=== PATIENT | female | born 2000 | race Caucasian/White ===

== ENCOUNTER 2020-12-18 00:19 | Emergency (ER) | payer MEDICAID, SELFPAY ==
--- NOTE | ~2020-12-18 | XR_ITS ---
EXAMINATION: XR CHEST CLINICAL INFORMATION: Mid chest pain COMPARISON: None TECHNIQUE: Frontal view of the chest was obtained. FINDINGS: The lungs are well expanded. There is no focal consolidation, edema, or effusion. No pneumothorax. The cardiomediastinal silhouette is within normal limits. No acute osseous abnormality. XR/XR chest 1V IMPRESSION: Clear lungs.
[2020-12-18 00:26] VITALS: BP 122/67; PULSE 77; RESP 16; TEMP 37.2; O2SAT 99; BMI 35.5
--- NOTE | 2020-12-18 00:53 | ED.GENADULT ---
HPI - General Adult General Chief complaint: General Medical Stated complaint: chest pain, resp pain Time Seen by Provider: 12/18/20 00:40 Source: patient Mode of arrival: ambulatory Limitations: no limitations History of Present Illness HPI narrative: . Patient with No significant past medical history with a sore throat for last 5 days burning sensation in the throat and also complaining of upper sternum pain since then increases on palpation movements of the hand. Out so patient complaining of cough is mostly dry no fever or chills Related Data Previous Rx's Medication Instructions Recorded amoxicillin 875 mg-potassium 1 tab PO BID #20 tab 12/18/20 clavulanate 125 mg tablet (Augmentin) ibuprofen 600 mg tablet 600 mg PO Q6H PRN #20 tab 12/18/20 Allergies Allergy/AdvReac Type Severity Reaction Status Date / Time sulfamethoxazole Allergy Unknown SWELLING Verified 12/18/20 00:26 [From BACTRIM] TO LIPS trimethoprim [From BACTRIM] Allergy Unknown SWELLING Verified 12/18/20 00:26 TO LIPS bactrim Allergy Unknown swollen Uncoded 12/18/20 00:26 lips Review of Systems Review of Systems: Yes all other systems are reviewed and are negative [facility] Social History Social History Advance Directives: No Advance Directives Information Provided: Yes Patient : No Physical Exam Vital Signs: Vital Signs: Last Vital Signs Temp 98.9 F 12/18/20 00:26 Pulse 77 12/18/20 00:26 Resp 16 12/18/20 00:26 BP 122/67 12/18/20 00:26 Pulse Ox 99 12/18/20 00:26 Body Mass Index 35.5 Appearance: Alert. Oriented X3. No acute distress. ENT: Slight erythema in posterior pharynx, Oral Mucosa moist Neck: Normal inspection. Neck supple. CVS: Normal heart rate and rhythm. Pulses normal. Respiratory: No respiratory distress. Equal air entry bilateral, no wheezing/rales/rhonchi ,tender to touch 2nd intercostal space bilateral Abdomen: Soft and nontender. Bowel sounds are present, Skin: Skin warm and dry. Normal skin color. Normal skin turgor. Extremities: No lower extremity edema. No calf tenderness Neuro: Oriented X 3. Course Reevaluation(s) Reevaluation #1: Chest x-ray negative for any infiltrate, rapid strep is pending. Will give Augmentin Time: 01:28 Medical Decision Making MDM Narrative Medical decision making narrative: Patient's symptoms likely from costochondritis. Will do a strep test as patient has sore throat. Patient already been vaccinated against COVID Discharge Plan Discharge Clinical Impression: Acute costochondritis Pharyngitis Qualifiers: Pharyngitis/tonsillitis etiology: other specified organisms Qualified Code(s): J02.8 - Acute pharyngitis due to other specified organisms Patient Disposition: Home, Self-Care Instructions: Pharyngitis (ED), Costochondritis (ED) Additional Instructions: Take ibuprofen every 6 hours for the pain Antibiotic as prescribed for infection Follow with PCP Prescriptions: New ibuprofen 600 mg tablet 600 mg PO Q6H PRN (Reason: pain) Qty: 20 RF: 0 amoxicillin-pot clavulanate [Augmentin] 875-125 mg tablet 1 tab PO BID Qty: 20 RF: 0
[2020-12-18 01:57] VITALS: BP 95/45; PULSE 68; RESP 15; O2SAT 97
[2020-12-18] MEDS: Amoxicillin/Potassium Clav 875 MG TABLET PO (01:58)
[2020-12-18] MEDS: Ketorolac Tromethamine 60 MG/2 ML VIAL IM (01:58)
[2020-12-18 02:19] LABS: IDNOW Serial# 9DD0AD1C; Strep A Nucleic Acid Negative (Negative)
== END 2020-12-18 02:09 | disposition home or self-care (01) ==
PROVIDERS: Emergency Provider Internal Medicine; PCP General Practice
DX: J02.8 Acute pharyngitis due to other specified organisms (principal); M94.0 Chondrocostal junction syndrome [Tietze]
CPT/HCPCS: 36415; 71045; 87651; 96372; 99284; J1885

== ENCOUNTER 2021-04-04 08:48 | Outpatient (REF) | payer MEDICAID, SELFPAY ==
[2021-04-04 09:29] LABS: Binax Internal Control QC Valid; Binax Now Covid-19 Ag Negative (Negative)
== END 2021-04-04 08:49 | disposition home or self-care (01) ==
LOC: HO.LAB 08:48
PROVIDERS: Visit Provider Internal Medicine
DX: Z20.822 Contact with and (suspected) exposure to COVID-19 (principal)
CPT/HCPCS: C9803

== ENCOUNTER 2021-12-16 14:58 | Outpatient (REF) | payer MEDICAID, SELFPAY ==
[2021-12-16 15:45] LABS: COVID-19 Test Negative (Negative); IDNOW Serial# 55D5AD1C
== END 2021-12-16 14:59 | disposition home or self-care (01) ==
LOC: HO.LAB 14:58
PROVIDERS: Visit Provider Internal Medicine
DX: Z20.822 Contact with and (suspected) exposure to COVID-19 (principal)
CPT/HCPCS: 87635

== ENCOUNTER 2022-02-09 07:52 | Outpatient (REF) | payer MEDICAID, SELFPAY ==
[2022-02-09 08:21] LABS: COVID-19 Test Negative (Negative); IDNOW Serial# 16C4AD1C
== END 2022-02-09 07:53 | disposition home or self-care (01) ==
LOC: HO.LAB 07:52
PROVIDERS: Visit Provider Internal Medicine
DX: Z20.822 Contact with and (suspected) exposure to COVID-19 (principal)
CPT/HCPCS: 87635; C9803